=== PATIENT | female | born 1965 | race Two or more races ===

== ENCOUNTER 2022-10-10 12:53 | Emergency (ER) | payer OTHER ==
[~2022-10-10] VITALS: Ht 152.4 cm; Wt 77.6 kg
[2022-10-10] MEDS ORDERED: LOSARTAN-HCTZ1 EAC1 (14:17)
[2022-10-10] MEDS ORDERED: METFORMIN HCL500 M3 (14:18)
[2022-10-10] MEDS ORDERED: NIFEDIPINE20 MG (14:18)
[2022-10-10] MEDS ORDERED: LOPRESSOR25 MG (14:18)
[2022-10-10] MEDS ORDERED: AMOX1TAB5 PO (15:06)
== END 2022-10-10 15:25 | disposition home or self-care (01) ==
LOC: ER 12:53
DX: S00.411A Abrasion of right ear, initial encounter (principal); W55.03XA Scratched by cat, initial encounter; Y93.9 Activity, unspecified; Y92.9 Unspecified place or not applicable; Y99.9 Unspecified external cause status